=== PATIENT | male | born 1950 | race African-American/Black ===

== ENCOUNTER → 2016-12-03 | Outpatient (CLI) | payer MEDICARE, MEDICAID ==
[~2016-12-03] MED LIST: AMLO10TA80; PIOG45TA5; RAMI10CA19; VALS320T2; [UNRECOGNIZED DRUG - CODE]
== END | disposition home or self-care (01) ==
LOC: RAD 09:29
PROVIDERS: ATTEND Internal Medicine Nephrology
DX: M85.88 Other specified disorders of bone density and structure, other site (principal)
CPT/HCPCS: 72114; 72220

== ENCOUNTER 2017-01-12 19:59 | Inpatient (IN) | payer MEDICARE, MEDICAID ==
[~2017-01-12] VITALS: Ht 175.3 cm; Wt 142.9 kg
[2017-01-12] MEDS ORDERED: ONDANSETRON HCL 4MG/2ML VIAL IV STA (22:52)
[2017-01-12] MEDS ORDERED: ASPIRIN 81MG TABLET PO ONE (23:00)
[2017-01-12] MEDS ORDERED: FUROSEMIDE 40MG/4ML VIAL IVP ONE (23:00)
[2017-01-12 23:32] LABS: BASOPHILS % 0.7 % (0.0-2.0); EOSINOPHILS % 2.1 % (0.0-5.0); HEMATOCRIT. 40.3 % (42.0-52.0); LYMPHOCYTES % 26.3 % (20.0-50.0); MEAN PLATELET VOLUME 9.9 fl (7.4-10.4); MONOCYTES % 7.6 % (2.0-8.0); NEUTROPHILS % 63.3 % (40.0-76.0); PLATELET 270 x1000/uL (130-400); RED BLOOD CELL COUNT 3.99 mill/uL (4.7-6.1)
[2017-01-12 23:42] LABS: D-DIMER 0.67 mg/L FEU (<0.50); INR 1.1; PROTHROMBIN TIME 11.6 sec (9.4-11.6)
[2017-01-12 23:47] LABS: CARBON DIOXIDE 28 mEq/L (21-32); CHLORIDE 105 mEq/L (98-107); TROPONIN I < 0.02 ng/mL (0.00-0.04)
[2017-01-13 09:30] VITALS: BP 139/82
[2017-01-13] MEDS ORDERED: ACETAMINOPHEN 325MG TABLET PO PRN (09:30)
[2017-01-13] MEDS ORDERED: HYDROCODONE/ACETAMINOPHEN 5/325MG TABLET PO PRN (09:30)
[2017-01-13] MEDS ORDERED: NA PHOS,M-B/NA PHOS,DI-BA ENEMA 118ML PR PRN (09:30)
[2017-01-13] MEDS ORDERED: DIPHENHYDRAMINE 50MG/ML VIAL IV PRN (09:30)
[2017-01-13] MEDS ORDERED: ONDANSETRON HCL 4MG/2ML VIAL IV PRN (09:30)
[2017-01-13] MEDS ORDERED: IPRATROPIUM/ALBUTEROL 0.5-3(2.5)MG/3ML NEB INH PRN (09:30)
[2017-01-13] MEDS ORDERED: MAGNESIUM/ALUMINUM HYDROXIDE/SIMETHICONE 30ML UDC PO PRN (09:30)
[2017-01-13] MEDS ORDERED: CLONIDINE 0.1MG TABLET PO PRN (09:30)
[2017-01-13] MEDS ORDERED: ERGOCALCIFEROL 50000UNITS CAPSULE PO SCH (10:00)
[2017-01-13] MEDS ORDERED: DEXTROSE 50% WATER 50ML SYRINGE IV PRN (11:45)
[2017-01-13 12:00] VITALS: BP 144/88
[2017-01-13] MEDS: BLOOD SUGAR DIAGNOSTIC STRIP TEST SCH ×3 (12:20→21:40)
[2017-01-13] MEDS: INSULIN LISPRO 100 UNITS/ML SUBCUT SCH ×3 (12:50→21:00)
[2017-01-13] MEDS: AMLODIPINE 10MG TABLET PO SCH (12:55)
[2017-01-13] MEDS: LOSARTAN POTASSIUM 50 MG TABLET PO SCH ×2 (12:55→22:06)
[2017-01-13] MEDS: PIOGLITAZONE 45MG TABLET PO SCH (12:55)
[2017-01-13] MEDS: LEVOTHYROXINE SODIUM 100MCG TABLET PO SCH (12:56)
[2017-01-13] MEDS: FUROSEMIDE 40MG TABLET PO SCH (12:56)
[2017-01-13] MEDS: AMIODARONE HCL 200 MG TABLET PO SCH (12:56)
[2017-01-13 16:00] VITALS: BP 141/82
[2017-01-13] MEDS ORDERED: RIVAROXABAN 20 MG TABLET PO SCH (17:00)
[2017-01-13 20:00] VITALS: BP_SYST 131; BP_SYST 143; BP_DIAS 74; BP_DIAS 91
[2017-01-14] VITALS: BP 133/65
[2017-01-14 04:00] VITALS: BP 145/83
[2017-01-14] MEDS: BLOOD SUGAR DIAGNOSTIC STRIP TEST SCH ×2 (06:30→12:15)
[2017-01-14] MEDS: LEVOTHYROXINE SODIUM 100MCG TABLET PO SCH (07:03)
[2017-01-14 07:20] LABS: CHLORIDE 106 mEq/L (98-107)
[2017-01-14 07:35] VITALS: BP 146/96
[2017-01-14 07:43] LABS: CARBON DIOXIDE 28 mEq/L (21-32); T4 FREE 1.53 ng/dL (0.76-1.46)
[2017-01-14 07:44] LABS: BASOPHILS % 0.3 % (0.0-2.0); EOSINOPHILS % 2.2 % (0.0-5.0); HEMATOCRIT. 38.1 % (42.0-52.0); HEMOGLOBIN. 12.8 g/dL (14.0-18.0); LYMPHOCYTES % 23.7 % (20.0-50.0); MEAN CORPUSCULAR HEMOGLOBIN 34.1 pg (28.0-32.0); MEAN CORPUSCULAR VOLUME 101.8 fL (80.0-94.0); MEAN PLATELET VOLUME 9.6 fl (7.4-10.4); MONOCYTES % 11.6 % (2.0-8.0); NEUTROPHILS % 62.2 % (40.0-76.0); PLATELET 208 x1000/uL (130-400); RED BLOOD CELL COUNT 3.75 mill/uL (4.7-6.1); RED CELL DISTRIBUTION WIDTH 13.8 % (11.6-14.6)
[2017-01-14] MEDS ORDERED: POTASSIUM CHLORIDE 20MEQ TABLET SR PO SCH (07:45)
[2017-01-14] MEDS: INSULIN LISPRO 100 UNITS/ML SUBCUT SCH ×2 (07:50→12:15)
[2017-01-14] MEDS: PIOGLITAZONE 45MG TABLET PO SCH (08:25)
[2017-01-14] MEDS: FUROSEMIDE 40MG TABLET PO SCH (08:26)
[2017-01-14] MEDS: AMLODIPINE 10MG TABLET PO SCH (08:26)
[2017-01-14] MEDS: LOSARTAN POTASSIUM 50 MG TABLET PO SCH (08:26)
[2017-01-14] MEDS: AMIODARONE HCL 200 MG TABLET PO SCH (08:26)
[2017-01-14 12:23] VITALS: BP 140/88
[2017-01-14 12:25] VITALS: BP 140/88
== END 2017-01-14 13:00 | disposition home or self-care (01) | DRG 292 ==
LOC: ER 01-13 02:31 → 6WST 01-13 02:33 → ENRESERV 01-13 08:30
PROVIDERS: ADMIT Hospitalist; ATTEND Hospitalist
PROC: 5A09357 Assistance with Respiratory Ventilation, Less than 24 Consecutive Hours, Continuous Positive Airway Pressure (ICD-10-PCS; principal; 2017-01-13)
DX: I11.0 Hypertensive heart disease with heart failure (principal); D68.59 Other primary thrombophilia; I48.91 Unspecified atrial fibrillation; I48.92 Unspecified atrial flutter; E87.5 Hyperkalemia; E11.319 Type 2 diabetes mellitus with unspecified diabetic retinopathy without macular edema; I50.9 Heart failure, unspecified; E03.9 Hypothyroidism, unspecified; E20.9 Hypoparathyroidism, unspecified; E05.90 Thyrotoxicosis, unspecified without thyrotoxic crisis or storm; E78.00 Pure hypercholesterolemia, unspecified; R74.0 Nonspecific elevation of levels of transaminase and lactic acid dehydrogenase [LDH]; E78.5 Hyperlipidemia, unspecified; Z96.659 Presence of unspecified artificial knee joint; G47.33 Obstructive sleep apnea (adult) (pediatric); S80.821A Blister (nonthermal), right lower leg, initial encounter; H26.9 Unspecified cataract; J45.909 Unspecified asthma, uncomplicated; M10.9 Gout, unspecified; M19.90 Unspecified osteoarthritis, unspecified site; Z79.84 Long term (current) use of oral hypoglycemic drugs; Z79.899 Other long term (current) drug therapy; Z82.3 Family history of stroke; Z82.49 Family history of ischemic heart disease and other diseases of the circulatory system; Z83.3 Family history of diabetes mellitus; Z87.891 Personal history of nicotine dependence
CPT/HCPCS: 36415; 71010; 80053; 82962; 83735; 83880; 84132; 84439; 84443; 84484; 85025; 85379; 85610; 93005; 93306; 93970; 94660; 96374; 96375; 99285; J1940; J2405

== ENCOUNTER 2017-04-03 08:18 | Emergency (ER) | payer MEDICARE, MEDICAID ==
[~2017-04-03] VITALS: Ht 180.3 cm; Wt 136.0 kg
[2017-04-03 10:53] LABS: BASOPHILS % 0.8 % (0.0-2.0); EOSINOPHILS % 0.9 % (0.0-5.0); HEMOGLOBIN. 13.6 g/dL (14.0-18.0); LYMPHOCYTES % 20.4 % (20.0-50.0); MEAN CORPUSCULAR HEMOGLOBIN 34.3 pg (28.0-32.0); MEAN CORPUSCULAR VOLUME 103.5 fL (80.0-94.0); MEAN PLATELET VOLUME 8.9 fl (7.4-10.4); MONOCYTES % 6.9 % (2.0-8.0); PLATELET 237 x1000/uL (130-400); RED BLOOD CELL COUNT 3.96 mill/uL (4.7-6.1); RED CELL DISTRIBUTION WIDTH 13.8 % (11.6-14.6)
[2017-04-03 11:07] LABS: CARBON DIOXIDE 27 mEq/L (21-32); CHLORIDE 107 mEq/L (98-107)
[2017-04-03 12:26] VITALS: BP 150/92
== END 2017-04-03 12:36 | disposition home or self-care (01) ==
LOC: ER 08:38
DX: K59.00 Constipation, unspecified (principal); I10 Essential (primary) hypertension; E78.00 Pure hypercholesterolemia, unspecified; E11.9 Type 2 diabetes mellitus without complications; E05.90 Thyrotoxicosis, unspecified without thyrotoxic crisis or storm; Z96.659 Presence of unspecified artificial knee joint
CPT/HCPCS: 36415; 74010; 80053; 85025; 99285

== ENCOUNTER 2018-01-03 10:33 | Emergency (ER) | payer MEDICARE, MEDICAID ==
[~2018-01-03] VITALS: Ht 180.3 cm; Wt 141.0 kg
[2018-01-03 11:15] VITALS: BP 176/106
== END 2018-01-03 14:31 | disposition home or self-care (01) ==
LOC: ER 12:14
DX: S20.212A Contusion of left front wall of thorax, initial encounter (principal); W01.0XXA Fall on same level from slipping, tripping and stumbling without subsequent striking against object, initial encounter; R03.0 Elevated blood-pressure reading, without diagnosis of hypertension; I48.91 Unspecified atrial fibrillation; Y93.89 Activity, other specified; Y92.89 Other specified places as the place of occurrence of the external cause
CPT/HCPCS: 71101; 93005; 99284

== ENCOUNTER 2018-06-06 07:42 | Day surgery (SDC) | payer MEDICARE, MEDICAID ==
[~2018-06-06] VITALS: Ht 180.3 cm; Wt 143.3 kg
[2018-06-06] MEDS ORDERED: PROPOFOL 200MG/20ML VIAL IV ONE (08:01)
[2018-06-06 08:57] LABS: HEMATOCRIT 43.2 % (42.0-52.0); HEMOGLOBIN 14.4 g/dL (14.0-18.0); MEAN CORPUSCULAR HEMOGLOBIN 34.3 pg (28.0-32.0); MEAN CORPUSCULAR VOLUME 102.8 fL (80.0-94.0); PLATELET 211 x1000/uL (130-400); RED CELL DISTRIBUTION WIDTH 13.1 % (11.6-14.6)
[2018-06-06 09:04] LABS: CHLORIDE 108 mEq/L (98-107)
[2018-06-06 09:10] LABS: INR 1.1; PARTIAL THROMBOPLASTIN TIME 31.3 sec (23.4-31.0); PROTHROMBIN TIME 11.5 sec (9.1-11.1)
[2018-06-06] MEDS ORDERED: RIVA20TA MT (09:11)
[2018-06-06] MEDS ORDERED: MIDAZOLAM HCL 2 MG/2 ML VIAL ONE ×2 (09:50→09:51)
[2018-06-06] MEDS ORDERED: SODIUM CHLORIDE 0.9% 10ML VIAL ONE (10:02)
[2018-06-06] MEDS ORDERED: HYDRALAZINE 20MG/ML VIAL ONE (10:02)
[2018-06-06] MEDS ORDERED: ATROPINE SULFATE 1MG/10ML SYR IV PRN (10:45)
[2018-06-06] MEDS ORDERED: ONDANSETRON HCL 4MG/2ML INJ IV PRN (10:45)
== END 2018-06-06 12:10 | disposition home or self-care (01) ==
LOC: CCL 07:42
PROVIDERS: ATTEND Internal Medicine Clinical Cardiac Electrophysiology
DX: I48.92 Unspecified atrial flutter (principal); I44.30 Unspecified atrioventricular block; I10 Essential (primary) hypertension; E66.01 Morbid (severe) obesity due to excess calories; E03.9 Hypothyroidism, unspecified; F15.90 Other stimulant use, unspecified, uncomplicated; E11.9 Type 2 diabetes mellitus without complications; G47.33 Obstructive sleep apnea (adult) (pediatric); F10.21 Alcohol dependence, in remission; Z96.651 Presence of right artificial knee joint; Z68.41 Body mass index [BMI] 40.0-44.9, adult; Z87.891 Personal history of nicotine dependence; Z79.01 Long term (current) use of anticoagulants; Z79.899 Other long term (current) drug therapy; Z83.3 Family history of diabetes mellitus; Z82.49 Family history of ischemic heart disease and other diseases of the circulatory system; Z82.3 Family history of stroke
CPT/HCPCS: 36415; 80048; 85027; 85610; 85730; 92960; 93005; J0360; J2250; J2704

== ENCOUNTER → 2018-08-24 | Outpatient (CLI) | payer MEDICARE, MEDICAID ==
[~2018-08-24] MED LIST changes: +RIVA20TA MT
== END | disposition home or self-care (01) ==
LOC: RAD 11:23
PROVIDERS: ATTEND Internal Medicine Nephrology
DX: M17.12 Unilateral primary osteoarthritis, left knee (principal); M85.88 Other specified disorders of bone density and structure, other site
CPT/HCPCS: 73562; 93971

== ENCOUNTER 2018-12-03 18:32 | Emergency (ER) | payer MEDICARE, MEDICAID ==
[~2018-12-03] VITALS: Ht 180.3 cm; Wt 255.0 kg
[2018-12-03 20:49] LABS: BASOPHILS % 0.4 % (0.0-2.0); EOSINOPHILS % 1.6 % (0.0-5.0); HEMATOCRIT. 44.5 % (42.0-52.0); HEMOGLOBIN. 14.8 g/dL (14.0-18.0); MEAN CORPUSCULAR HEMOGLOBIN 34.7 pg (28.0-32.0); MEAN CORPUSCULAR VOLUME 104.1 fL (80.0-94.0); MEAN PLATELET VOLUME 9.3 fl (7.4-10.4); MONOCYTES % 10.2 % (2.0-8.0); NEUTROPHILS % 56.8 % (40.0-76.0); PLATELET 187 x1000/uL (130-400); RED BLOOD CELL COUNT 4.27 mill/uL (4.7-6.1); RED CELL DISTRIBUTION WIDTH 13.5 % (11.6-14.6)
[2018-12-03 20:53] LABS: CHLORIDE 108 mEq/L (98-107)
[2018-12-03] MEDS ORDERED: BUMETANIDE 1MG TABLET PO ONE (21:30)
[2018-12-03 21:59] VITALS: BP 147/73
== END 2018-12-03 22:06 | disposition home or self-care (01) ==
LOC: ER 18:32
DX: R60.9 Edema, unspecified (principal); I48.91 Unspecified atrial fibrillation; E11.9 Type 2 diabetes mellitus without complications; I10 Essential (primary) hypertension; E78.00 Pure hypercholesterolemia, unspecified; E05.90 Thyrotoxicosis, unspecified without thyrotoxic crisis or storm; Z96.659 Presence of unspecified artificial knee joint
CPT/HCPCS: 36415; 71045; 83880; 84484; 93005; 93971; 99284

== ENCOUNTER → 2018-12-12 | Outpatient (CLI) | payer MEDICARE, MEDICAID | END | disposition home or self-care (01) | LOC: US 09:30 | PROVIDERS: ATTEND Internal Medicine Nephrology | DX: R60.9 Edema, unspecified (principal); M79.605 Pain in left leg; M79.604 Pain in right leg | CPT/HCPCS: 93970 ==

== ENCOUNTER → 2018-12-19 | Outpatient (CLI) | payer MEDICARE, MEDICAID | END | disposition home or self-care (01) | LOC: US 09:48 | PROVIDERS: ATTEND Internal Medicine Nephrology | DX: I87.2 Venous insufficiency (chronic) (peripheral) (principal); K80.80 Other cholelithiasis without obstruction; N28.1 Cyst of kidney, acquired | CPT/HCPCS: 76700 ==

== ENCOUNTER 2019-06-24 11:14 | Emergency (ER) | payer MEDICAID, MEDICARE ==
[~2019-06-24] VITALS: Ht 180.3 cm; Wt 137.0 kg
[~2019-06-24 11:14] MED LIST changes: -RAMI10CA19; +RAMI10CA68
[2019-06-24 13:17] LABS: BASOPHILS % 0.3 % (0.0-2.0); EOSINOPHILS % 0.5 % (0.0-5.0); HEMATOCRIT. 44.1 % (42.0-52.0); LYMPHOCYTES % 22.9 % (20.0-50.0); MEAN CORPUSCULAR HEMOGLOBIN 34.6 pg (28.0-32.0); MEAN CORPUSCULAR VOLUME 102.2 fL (80.0-94.0); MEAN PLATELET VOLUME 8.9 fl (7.4-10.4); MONOCYTES % 9.6 % (2.0-8.0); NEUTROPHILS % 66.7 % (40.0-76.0); PLATELET 241 x1000/uL (130-400); RED BLOOD CELL COUNT 4.32 mill/uL (4.7-6.1); RED CELL DISTRIBUTION WIDTH 13.3 % (11.6-14.6)
[2019-06-24 13:24] LABS: CHLORIDE 109 mEq/L (98-107)
[2019-06-24 13:56] VITALS: BP 147/89
[2019-06-24] MEDS ORDERED: TOLNAFTATE 1% CREAM 15GM TOP SCH (21:00)
== END 2019-06-24 14:45 | disposition home or self-care (01) ==
LOC: ER 12:37
DX: R60.0 Localized edema (principal); B35.3 Tinea pedis; E11.9 Type 2 diabetes mellitus without complications; I10 Essential (primary) hypertension; M10.9 Gout, unspecified; I49.9 Cardiac arrhythmia, unspecified; Z96.651 Presence of right artificial knee joint
CPT/HCPCS: 36415; 80053; 85025; 93970; 99284

== ENCOUNTER → 2020-01-15 | Outpatient (CLI) | payer MEDICARE | END | disposition home or self-care (01) | LOC: LAB 10:25 | PROVIDERS: ATTEND Internal Medicine Nephrology | DX: Z20.828 Contact with and (suspected) exposure to other viral communicable diseases (principal) | CPT/HCPCS: C9803; U0003 ==

== ENCOUNTER → 2020-01-17 | Outpatient (CLI) | payer MEDICARE | END | disposition home or self-care (01) | LOC: US 07:24 | PROVIDERS: ATTEND Internal Medicine Nephrology | DX: K76.0 Fatty (change of) liver, not elsewhere classified (principal); K76.89 Other specified diseases of liver; R79.89 Other specified abnormal findings of blood chemistry | CPT/HCPCS: 76700 ==

== ENCOUNTER 2021-09-09 06:56 | Emergency (ER) | payer OTHER, MEDICARE ==
[~2021-09-09] VITALS: Ht 167.6 cm; Wt 129.1 kg
[2021-09-09 07:08] VITALS: BP 167/88
[2021-09-09] MEDS ORDERED: SODIUM CHLORIDE 0.9% 250 ML IV ONE (07:30)
[2021-09-09] MEDS: MORPHINE SULFATE 4 MG/ML CPJ (NOT FOR IM USE) IV STA ×2 (07:49→07:58)
[2021-09-09] MEDS: ONDANSETRON HCL 4MG/2ML INJ IV STA ×2 (07:49→07:58)
[2021-09-09 08:06] LABS: BASOPHILS % 0.9 % (0.0-2.0); EOSINOPHILS % 1.4 % (0.0-5.0); HEMOGLOBIN. 14.2 g/dL (14.0-18.0); LYMPHOCYTES % 13.3 % (20.0-50.0); MEAN CORPUSCULAR HEMOGLOBIN 32.9 pg (28.0-32.0); MEAN CORPUSCULAR VOLUME 97.5 fL (80.0-94.0); MEAN PLATELET VOLUME 10.5 fl (7.4-10.4); MONOCYTES % 9.3 % (2.0-8.0); NEUTROPHILS % 75.1 % (40.0-76.0); PLATELET 227 x1000/uL (130-400); RED CELL DISTRIBUTION WIDTH 13.2 % (11.6-14.6)
[2021-09-09 08:15] LABS: CHLORIDE 100 mEq/L (98-107)
[2021-09-09 08:40] LABS: CLARITY URINE CLEAR (CLEAR); COLOR URINE YELLOW (YELLOW); KETONES URINE 3+ (NEGATIVE); LEUKOCYTE ESTERASE URINE NEGATIVE (NEGATIVE); NITRITE URINE NEGATIVE (NEGATIVE); OCCULT BLOOD URINE 1+ (NEGATIVE); PH URINE 6.5 (4.5-8.0); PROTEIN URINE 2+ (NEGATIVE); SPECIFIC GRAVITY URINE 1.033 (1.005-1.030)
[2021-09-09 08:47] LABS: INR 1.3; PROTHROMBIN TIME 13.5 sec (9.6-11.0)
[2021-09-09] MEDS ORDERED: HYDR-4001 MT (10:33)
[2021-09-09] MEDS ORDERED: AMOX-424 MT (10:33)
[2021-09-09] MEDS ORDERED: IOHEXOL-300 100 ML BOTTLE ONE (13:20)
== END 2021-09-09 11:09 | disposition home or self-care (01) ==
LOC: ER 06:56
DX: L03.311 Cellulitis of abdominal wall (principal); I10 Essential (primary) hypertension; E11.9 Type 2 diabetes mellitus without complications; Z98.890 Other specified postprocedural states
CPT/HCPCS: 36415; 74177; 80053; 81003; 83690; 83880; 85025; 85610; 99285; J2270; J7030; Q9967; J2405

== ENCOUNTER 2022-06-16 00:24 | Emergency (ER) | payer OTHER, MEDICARE ==
[~2022-06-16] VITALS: Ht 180.3 cm; Wt 116.0 kg
[~2022-06-16 00:24] MED LIST changes: +AMOX-424 MT; +HYDR-4001 MT; +SULF1TAB48 MT
[2022-06-16 02:30] LABS: BASOPHILS % 0.6 % (0.0-2.0); EOSINOPHILS % 1.3 % (0.0-5.0); HEMATOCRIT. 47.9 % (42.0-52.0); HEMOGLOBIN. 15.9 g/dL (14.0-18.0); LYMPHOCYTES % 19.8 % (20.0-50.0); MEAN CORPUSCULAR HEMOGLOBIN 33.2 pg (28.0-32.0); MEAN CORPUSCULAR VOLUME 100.2 fL (80.0-94.0); MEAN PLATELET VOLUME 10.1 fl (7.4-10.4); MONOCYTES % 8.1 % (2.0-8.0); NEUTROPHILS % 70.2 % (40.0-76.0); PLATELET 235 x1000/uL (130-400); RED BLOOD CELL COUNT 4.78 mill/uL (4.7-6.1); RED CELL DISTRIBUTION WIDTH 13.4 % (11.6-14.6)
[2022-06-16 02:42] LABS: CHLORIDE 104 mEq/L (98-107)
[2022-06-16] MEDS ORDERED: AMLODIPINE 2.5MG TABLET PO ONE (03:30)
[2022-06-16 03:38] VITALS: BP 177/111
== END 2022-06-16 03:39 | disposition home or self-care (01) ==
LOC: ER 00:24
DX: E11.65 Type 2 diabetes mellitus with hyperglycemia (principal); I10 Essential (primary) hypertension
CPT/HCPCS: 36415; 80053; 82962; 85025; 99283

== ENCOUNTER 2022-07-23 13:35 | Emergency (ER) | payer MEDICARE, OTHER ==
[~2022-07-23] VITALS: Ht 180.3 cm; Wt 114.0 kg
[2022-07-23 13:42] VITALS: BP 207/116
== END 2022-07-23 15:30 | disposition left against medical advice (07) ==
LOC: ER 13:35
DX: Z53.21 Procedure and treatment not carried out due to patient leaving prior to being seen by health care provider (principal); I10 Essential (primary) hypertension; E11.9 Type 2 diabetes mellitus without complications; Z98.890 Other specified postprocedural states
CPT/HCPCS: 99281

== ENCOUNTER 2023-10-03 09:47 | Inpatient (IN) | payer MEDICARE, OTHER ==
[~2023-10-03] VITALS: Ht 180.3 cm; Wt 180.5 kg
[~2023-10-03 09:47] MED LIST changes: -AMLO10TA80; +AMLO10TA80 PO; +FURO40TA5 MT; -PIOG45TA5; +PIOG45TA5 PO
[2023-10-03 10:25] LABS: BASOPHILS % 0.3 % (0.0-2.0); DIFFERENTIAL COMMENT 0; EOSINOPHILS % 1.6 % (0.0-5.0); HEMATOCRIT. 38.7 % (42.0-52.0); HEMOGLOBIN. 12.9 g/dL (14.0-18.0); LYMPHOCYTES % 12.5 % (20.0-50.0); MEAN CORPUSCULAR HEMOGLOBIN 34.1 pg (28.0-32.0); MEAN CORPUSCULAR HGB CONC 33.4 g/dL (31.0-37.0); MEAN CORPUSCULAR VOLUME 102.3 fL (80.0-94.0); MEAN PLATELET VOLUME 8.4 fl (7.4-10.4); MONOCYTES % 7.8 % (2.0-8.0); NEUTROPHILS % 77.8 % (40.0-76.0); PLATELET 220 x1000/uL (130-400); RED BLOOD CELL COUNT 3.78 mill/uL (4.7-6.1); WHITE BLOOD COUNT 5.7 x1000/uL (4.5-11.0)
[2023-10-03 10:34] LABS: CHLORIDE 109 mEq/L (98-107); INR 1.2; POTASSIUM 4.4 mEq/L (3.5-5.1); PROTHROMBIN TIME 12.7 sec (9.6-11.0); SODIUM 142 mEq/L (136-145)
[2023-10-03 10:37] LABS: CALCIUM 9.3 mg/dL (8.7-10.4); CARBON DIOXIDE 25 mEq/L (21-32)
[2023-10-03 10:42] LABS: CREATININE 1.1 mg/dL (0.6-1.3); GLUCOSE 140 mg/dL (70-105); TROPONIN I HIGH SENSITIVITY 53 ng/L (3.0-53); UREA NITROGEN BLOOD 15 mg/dL (9-23)
[2023-10-03 10:43] LABS: ALANINE AMINOTRANSFERASE 14 IU/L (10-49); ASPARTATE AMINOTRANSFERASE 21 IU/L (<34)
[2023-10-03 10:44] LABS: ALBUMIN 3.8 g/dL (3.2-4.8); BILIRUBIN DIRECT 0.5 mg/dL (<=3.0); BILIRUBIN TOTAL 1.1 mg/dL (0.1-1.0); PROTEIN TOTAL 7.9 g/dL (6.0-8.3)
[2023-10-03 10:50] VITALS: PULSE 86; RESP 20; O2SAT 99
[2023-10-03] MEDS: IPRATROPIUM BROMIDE (0.02%) 0.5MG/2.5ML NEB HHN STA (10:50)
[2023-10-03] MEDS: ALBUTEROL (0.083%) 2.5MG/3ML NEB HHN STA (10:50)
[2023-10-03 11:05] LABS: CLARITY URINE CLEAR (CLEAR); COLOR URINE YELLOW (YELLOW); GLUCOSE URINE 3+ (NEGATIVE); KETONES URINE NEGATIVE (NEGATIVE); LEUKOCYTE ESTERASE URINE TRACE (NEGATIVE); NITRITE URINE NEGATIVE (NEGATIVE); OCCULT BLOOD URINE NEGATIVE (NEGATIVE); PH URINE 5.5 (4.5-8.0); PROTEIN URINE NEGATIVE (NEGATIVE); SPECIFIC GRAVITY URINE 1.012 (1.005-1.030); UROBILINOGEN URINE 0.2 E.U./dL (0.2-1.0)
[2023-10-03 11:38] LABS: SQUAMOUS EPITHELIAL CELL URINE FEW /lpf (RARE/1+)
[2023-10-03 11:39] LABS: BACTERIA URINE NONE SEEN; RBC URINE NONE SEEN /hpf (0-2); WBC URINE 0-2 /hpf (0-2); YEAST URINE 1+
[2023-10-03] MEDS: FUROSEMIDE 40MG/4ML VIAL IVP ONE (12:21)
[2023-10-03] MEDS: METHYLPREDNISOLONE SOD SUCC 125MG/2ML (ACT-O-VIAL) IV ONE (12:23)
[2023-10-03] MEDS ORDERED: CLONIDINE 0.1MG TABLET PO PRN (14:15)
[2023-10-03] MEDS ORDERED: ACETAMINOPHEN 325MG TABLET PO PRN ×2 (14:15)
[2023-10-03] MEDS ORDERED: DEXTROSE 50% WATER 50ML SYRINGE IV PRN (14:15)
[2023-10-03] MEDS ORDERED: DOCUSATE SODIUM 100MG CAPSULE PO PRN (14:15)
[2023-10-03] MEDS ORDERED: IPRATROPIUM/ALBUTEROL 0.5-3(2.5)MG/3ML NEB HHN PRN (14:15)
[2023-10-03] MEDS ORDERED: ONDANSETRON HCL 4MG/2ML INJ IV PRN (14:15)
[2023-10-03 14:30] VITALS: PULSE 96; RESP 24; O2SAT 96
[2023-10-03] MEDS: IPRATROPIUM/ALBUTEROL 0.5-3(2.5)MG/3ML NEB HHN SCH (14:30)
[2023-10-03] MEDS: CEFTRIAXONE 1GM/50ML 50 ML IV SCH (15:17)
[2023-10-03 15:30] LABS: CREATINE KINASE MB FRACTION 2.6 ng/mL (0.5-3.6)
[2023-10-03 15:35] LABS: *AMPHETAMINES SCREEN URINE NEGATIVE (NEGATIVE); *BARBITURATES SCREEN URINE NEGATIVE (NEGATIVE); *BENZODIAZEPINES SCREEN URINE NEGATIVE (NEGATIVE); *COCAINE SCREEN URINE NEGATIVE (NEGATIVE); CANNABINOID URINE SCREEN NEGATIVE (NEGATIVE); ECSTASY MDMA SCREEN URINE NEGATIVE (NEGATIVE); METHADONE URINE SCREEN NEGATIVE (NEGATIVE); OPIATES URINE SCREEN NEGATIVE (NEGATIVE); PHENCYCLIDINE URINE SCREEN NEGATIVE (NEGATIVE)
[2023-10-03 15:51] LABS: TROPONIN I HIGH SENSITIVITY 84 ng/L (3.0-53)
[2023-10-03 16:07] LABS: BG BASE EXCESS -1.9 mmol/L (-2.0-2.0); BG DEOXYHEMOGLOBIN 4.6 % (0.0-5.0); BG FRACTION INSPIRED OXYGEN 36; BG HCO3 ACT 21.6 mmol/L (22.0-26.0); BG METHEMOGLOBIN 0.2 % (0.0-1.5); BG OXYGEN SATURATION 95.3 % (92.0-98.5); BG OXYHEMOGLOBIN 94.2 % (94.0-97.0); BG PCO2 33.3 mmHg (35.0-45.0); BG PO2 80.8 mmHg (75.0-100.0); BG SAMPLE SITE RIGHT BRACHIAL; BG TOTAL HEMOGLOBIN 13.8 g/dL (12.0-18.0); BG VENT MODE NASAL CANNULA
[2023-10-03 16:35] VITALS: BP 113/68; PULSE 94; RESP 20; TEMP 98
[2023-10-03] MEDS: BLOOD SUGAR DIAGNOSTIC STRIP TEST SCH (17:00)
[2023-10-03 17:13] VITALS: BP 113/68; PULSE 94; RESP 20; TEMP 98
[2023-10-03] MEDS: RIVAROXABAN 20 MG TABLET PO SCH (18:03)
[2023-10-03] MEDS: INSULIN LISPRO 100 UNITS/ML SUBCUT SCH (18:03)
[2023-10-03 19:58] VITALS: BP 143/78; PULSE 92; RESP 20; TEMP 97.7
[2023-10-03 20:50] VITALS: PULSE 83; RESP 19; O2SAT 96
[2023-10-03] MEDS: AMLODIPINE 2.5MG TABLET PO SCH (21:07)
[2023-10-03] MEDS: FUROSEMIDE 40MG/4ML VIAL IVP SCH (21:07)
[2023-10-04] VITALS (8 sets, daily range): BP systolic 98–140; BP diastolic 49–81; PULSE 69–93; RESP 18–22; TEMP 97.2–99.9; O2SAT 98
[2023-10-04] MEDS ORDERED: LOSA100T33 PO (01:29)
[2023-10-04] MEDS ORDERED: EMPA25TA PO (01:30)
[2023-10-04] MEDS ORDERED: CRES10 PO (01:33)
[2023-10-04 08:18] LABS: CHLORIDE 109 mEq/L (98-107); POTASSIUM 3.6 mEq/L (3.5-5.1); SODIUM 141 mEq/L (136-145)
[2023-10-04 08:19] LABS: CARBON DIOXIDE 24 mEq/L (21-32); HEMATOCRIT. 35.1 % (42.0-52.0); HEMOGLOBIN. 11.8 g/dL (14.0-18.0); MEAN CORPUSCULAR HEMOGLOBIN 34.6 pg (28.0-32.0); MEAN CORPUSCULAR HGB CONC 33.5 g/dL (31.0-37.0); MEAN CORPUSCULAR VOLUME 103.3 fL (80.0-94.0); MEAN PLATELET VOLUME 9.5 fl (7.4-10.4); PLATELET 217 x1000/uL (130-400); RED CELL DISTRIBUTION WIDTH 14.5 % (11.6-14.6); WHITE BLOOD COUNT 7.8 x1000/uL (4.5-11.0)
[2023-10-04 08:20] LABS: CALCIUM 9.4 mg/dL (8.7-10.4)
[2023-10-04 08:24] LABS: CREATININE 1.1 mg/dL (0.6-1.3); GLUCOSE 171 mg/dL (70-105)
[2023-10-04 08:25] LABS: UREA NITROGEN BLOOD 17 mg/dL (9-23)
[2023-10-04 08:44] LABS: DIFFERENTIAL COMMENT 1
[2023-10-04 08:46] LABS: TROPONIN I HIGH SENSITIVITY 110 ng/L (3.0-53)
[2023-10-04 09:53] LABS: PLATELET ESTIMATE NORMAL
[2023-10-04 14:04] LABS: TROPONIN I HIGH SENSITIVITY 123 ng/L (3.0-53)
[2023-10-04] MEDS: CEFTRIAXONE 1GM/50ML 50 ML IV SCH (16:00)
[2023-10-04 16:44] LABS: TROPONIN I HIGH SENSITIVITY 121 ng/L (3.0-53)
== END 2023-10-04 17:30 | disposition home or self-care (01) | DRG 641 ==
LOC: ER 10:12 → 7WST 12:18
PROVIDERS: ADMIT Internal Medicine; ATTEND Internal Medicine
DX: E87.70 Fluid overload, unspecified (principal); N39.0 Urinary tract infection, site not specified; Z68.43 Body mass index [BMI] 50.0-59.9, adult; I89.0 Lymphedema, not elsewhere classified; I48.0 Paroxysmal atrial fibrillation; I49.3 Ventricular premature depolarization; I11.0 Hypertensive heart disease with heart failure; Z79.01 Long term (current) use of anticoagulants; Z87.01 Personal history of pneumonia (recurrent); Z96.651 Presence of right artificial knee joint; G47.33 Obstructive sleep apnea (adult) (pediatric); E66.09 Other obesity due to excess calories; E11.9 Type 2 diabetes mellitus without complications; I27.20 Pulmonary hypertension, unspecified; I50.9 Heart failure, unspecified; Z20.822 Contact with and (suspected) exposure to COVID-19; G47.30 Sleep apnea, unspecified; E78.5 Hyperlipidemia, unspecified; D64.9 Anemia, unspecified; Z79.899 Other long term (current) drug therapy; J44.9 Chronic obstructive pulmonary disease, unspecified
CPT/HCPCS: 36415; 36600; 71045; 80048; 80076; 80305; 81003; 82375; 82550; 82553; 82805; 82962; 83735; 83880; 84484; 85025; 85379; 87426; 93005; 93306; 94640; 94644; 99291; J0696; J1815; J1940; J2930